=== PATIENT | female | born 1945 | race Caucasian/White ===

== ENCOUNTER 2018-02-16 07:26 | Day surgery (SDC) | payer MEDICARE, BC ==
[2018-02-16] MEDS: NS 1,000 ML IV (06:00)
[2018-02-16] MEDS ORDERED: PROPOFOL 200 MG/20 ML VIAL As Ordered (08:41)
[2018-02-16] MEDS ORDERED: LIDOCAINE 2% INJ 100 MG/5 ML SDV (FOR ANES.) As Ordered (08:41)
== END 2018-02-16 09:26 | disposition home or self-care (01) ==
LOC: M OPP 07:26
DX: Z12.11 Encounter for screening for malignant neoplasm of colon (principal); K62.1 Rectal polyp; K57.30 Diverticulosis of large intestine without perforation or abscess without bleeding; I10 Essential (primary) hypertension; E78.5 Hyperlipidemia, unspecified; M19.90 Unspecified osteoarthritis, unspecified site; Z85.828 Personal history of other malignant neoplasm of skin; R51 Headache; R06.83 Snoring; Z87.891 Personal history of nicotine dependence; Z88.0 Allergy status to penicillin; Z88.8 Allergy status to other drugs, medicaments and biological substances; Z88.3 Allergy status to other anti-infective agents; Z79.82 Long term (current) use of aspirin; Z79.899 Other long term (current) drug therapy
CPT/HCPCS: 45385

== ENCOUNTER → 2019-04-30 | Outpatient (REF) | payer MEDICARE, BC ==
[~2019-04-30] MED LIST: ASPI81TA85 PO; BUTACAP78 PO; CARV25TA PO; CELE1CAP4 PO; HYDR12CA PO; IRBE300T10 PO; LOVA20TA2 PO; MELO15TA28 PO
== END ==
LOC: M LAB REF 18:27
PROVIDERS: ATTEND Physician Assistant
DX: L82.1 Other seborrheic keratosis (principal)

== ENCOUNTER → 2025-01-29 | Outpatient (REF) | payer BC, MEDICARE ==
[~2025-01-29] MED LIST changes: -ASPI81TA85 PO; +ASPI81TA86 PO; +HYDR12.510 PO; -HYDR12CA PO; -IRBE300T10 PO; +IRBE300T25 PO
== END ==
LOC: M SFHCDERM 18:09
PROVIDERS: ATTEND Physician Assistant
DX: C44.309 Unspecified malignant neoplasm of skin of other parts of face (principal)